=== PATIENT | male | born 1985 | race Caucasian/White ===

== ENCOUNTER 2018-09-03 00:53 | Emergency (ER) | payer MEDICAID, SELFPAY ==
[2018-09-03] VITALS (11 sets, daily range): BP systolic 140–168; BP diastolic 87–121; PULSE 82–102; RESP 14–24; O2SAT 95–100
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
[2018-09-03] MEDS: fentaNYL 100 MCG/2 ML VIAL ×5 (01:07→02:00)
[2018-09-03] MEDS: Lidocaine 1% Multi-Dose 50 ML VIAL (01:15)
[2018-09-03] MEDS: Lactated Ringers 1,000 ML 125 ML IV ×2 (01:15→01:25)
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
[2018-09-03 02:15] LABS: ALT 192 U/L (12-78); AST 193 U/L (15-37); Abs Immature Grans 0.05 k/cumm (0.0-0.09); Absolute Basophil Count 0.03 k/cumm (0.0-0.2); Absolute Eosinophil Count 0.16 k/cumm (0.0-0.7); Absolute Lymphocyte Count 6.02 k/cumm (1.2-3.4); Absolute Neutrophil Count 6.26 k/cumm (1.2-6.7); Albumin 3.6 g/dL (3.4-5.0); Alkaline Phosphatase 102 U/L (46-116); Anion Gap 10.3 mmol/L (3-11); BUN 24 mg/dL (7-18); Basophils % 0.2; Bilirubin, Total 0.5 mg/dL (0.2-1.0); CO2 29.7 mmol/L (21.0-32.0); Chloride 95 mmol/L (98-107); Eosinophils % 1.2; Glucose 272 mg/dL (70-100); HCT 38.9 % (40.0-50.0); Immature Grans % 0.4; Mean Corpuscular Hemoglobin 30.5 pg (27.0-33.0); Mean Corpuscular Volume 84.7 fL (80-95); Mean Platelet Volume 8.9 fL (8.0-11.0); Monocytes % 8.5; Neutrophils % 45.7; Platelet Count 329 x1000/uL (130-400); RBC 4.59 m/cumm (4.50-6.00); RBC Distribution Width 12.5 % (11.8-14.1); Sodium 135 mmol/L (136-145); Total Protein 7.7 g/dL (6.4-8.2); White Blood Cell Count 13.69 k/cumm (4.4-10.8)
[2018-09-03 02:16] LABS: Absolute Monocyte Count 1.16 k/cumm (0.11-0.7); Prothrombin Time 9.9 sec (9.3-11.0)
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
== END 2018-09-03 02:14 | disposition short-term general hospital (02) ==
PROVIDERS: Emergency Provider Emergency Medicine; PCP Family Medicine
DX: S21.301A Unspecified open wound of right front wall of thorax with penetration into thoracic cavity, initial encounter (principal); X95.9XXA Assault by unspecified firearm discharge, initial encounter; R06.82 Tachypnea, not elsewhere classified; F11.90 Opioid use, unspecified, uncomplicated
CPT/HCPCS: 32551; 36415; 36556; 51702; 80053; 86850; 86900; 86901; 86920; 96361; 96374; 96375; 99253; 99291; 71045; 74018; 85025; 85610; 85730; J3010

== ENCOUNTER 2018-09-14 10:26 | Outpatient (CLI) | payer MEDICAID, SELFPAY ==
--- NOTE | 2018-09-14 11:17 | DI.RAD_ITS ---
SYMPTOM/DIAGNOSIS: HEMOPNEUMOTHORAX J94.2 PA AND LATERAL CHEST: Comparison is made with 03 September 2018. The chest tube has been removed. There is no evidence of pneumothorax. The lungs are suboptimally inflated. There are increased densities at the right lung base. The findings could represent atelectasis. A pneumonia cannot be entirely excluded. Left lung appears clear. The heart size is normal. No effusions are seen. Skin deb are seen laterally in the right lower chest. There is no abnormal gas collection in the subcutaneous tissues. IMPRESSION: Right middle and lower lobe atelectasis vs infiltrate. No evidence of pneumothorax or pleural effusion.
[2018-09-14 11:21] LABS: Absolute Basophil Count 0.05 k/cumm (0.0-0.2); Absolute Lymphocyte Count 2.18 k/cumm (1.2-3.4); Absolute Monocyte Count 1.21 k/cumm (0.11-0.7); Absolute Neutrophil Count 7.95 k/cumm (1.2-6.7); Basophils % 0.4; Eosinophils % 1.7; HCT 37.2 % (40.0-50.0); HGB 12.3 g/dL (13.5-17.5); Immature Grans % 1.7; Lymphocytes % 18.5; Mean Corp. HGB Concentration 33.1 g/dL (32.0-36.0); Mean Corpuscular Hemoglobin 29.1 pg (27.0-33.0); Mean Corpuscular Volume 87.9 fL (80-95); Mean Platelet Volume 8.3 fL (8.0-11.0); Monocytes % 10.3; Neutrophils % 67.4; Platelet Count 541 x1000/uL (130-400); RBC 4.23 m/cumm (4.50-6.00); RBC Distribution Width 12.8 % (11.8-14.1); White Blood Cell Count 11.79 k/cumm (4.4-10.8)
[2018-09-14 12:16] LABS: ALT 43 U/L (12-78); AST 26 U/L (15-37); Albumin 3.1 g/dL (3.4-5.0); Alkaline Phosphatase 153 U/L (46-116); Anion Gap 11.9 mmol/L (3-11); BUN 6 mg/dL (7-18); Bilirubin, Total 0.2 mg/dL (0.2-1.0); CO2 26.1 mmol/L (21.0-32.0); CREATININE 0.98 mg/dL (0.70-1.30); Calcium 9.2 mg/dL (8.5-10.1); Chloride 101 mmol/L (98-107); Glucose 122 mg/dL (70-100); Potassium 3.9 mmol/L (3.5-5.1); Sodium 139 mmol/L (136-145); Total Protein 7.6 g/dL (6.4-8.2)
== END 2018-09-14 10:46 ==
PROVIDERS: PCP Family Medicine; Visit Provider Nurse Practitioner Family
DX: J94.2 Hemothorax (principal); R91.8 Other nonspecific abnormal finding of lung field
CPT/HCPCS: 36415; 80053; 71046; 85025

== ENCOUNTER 2019-04-27 10:33 | Emergency (ER) | payer MEDICAID, SELFPAY ==
[2019-04-27 10:39] VITALS: BP 128/75; PULSE 100; RESP 18; TEMP 37.1; O2SAT 94
--- NOTE | 2019-04-27 10:51 | ED.GENADUL_ITS ---
Discharge Plan Disposition Patient Disposition: HOME Condition: Stable Discharge Details Chief Complaint: Orthopedic Clinical Impression: Contusion of hand, right Primary Care Provider: Cindy Jansen ED Provider: Reginaldo Mcbride Home Meds and New Rx's Prescriptions: New amoxicillin-pot clavulanate [Augmentin] 875-125 mg tablet 1 tab PO Q12H Qty: 14 RF: 0 Discharge Instructions Instructions: Contusion in Adults (ED) Additional Instructions: if not better in a week see your primary care provider if you feel more ill, have redness spreading up the arm or severe worsening pain return to the emergency department Discharge Data Discharge Date/Time-TO BE ENTERED AT DEPARTURE: 04/27/19 11:58 Medical Decision Making 33 yo male who states he uses IV heroin daily comes in with right hand pain for 4 days after punching a wall several times. Denies other falls or injuries and denies injecting into his right hand. He has pain over mid 4th and 5th metacarpal, no pain in wrist with full rom and has intact sensation. Will xray to eval for fx. Has no crepitus to suggest nec fasc, has a small area of redness on posterior mid hand that is 2x2cm without breaks in the skin. Could be from the trauma vs cellulitis, no fluctuance to suggest abscess xray negative on my read. Will d/c on abx for possible cellulitis and advised f/u with pcp in a week if not better and return precautions given Differential Diagnosis fracture, cellulitis Imaging Data Radiologic Study: Attestation: I personally reviewed and interpreted this imaging study as follows: Imaging: X-Ray My impression: no acute findings HPI General Mode of arrival: ambulatory . Date/Time Provider Initiated Documentation: 04/27/19 10:48 . Limitations to Documentation: no limitations . Information obtained by: patient . History of Present Illness 33 year old M presents to the emergency department with the chief complaint of right hand pa in, described as moderate, Quality is described as aching, and is localized to the right and upper extremity. Patient reports no radiation. Patient started experiencing this day(s) (4) and it has been constant. No relieving factors improve symptom(s), No exacerbating factors reported . Patient notes no other symptoms.. Related Data Home Medications Medication Instructions Recorded Confirmed amoxicillin-pot clavulanate 1 tab PO Q12H #14 tab 04/27/19 [Augmentin] Previous Rx's Medication Instructions Recorded amoxicillin-pot clavulanate 1 tab PO Q12H #14 tab 04/27/19 [Augmentin] Allergies Allergy/AdvReac Type Severity Reaction Status Date / Time No Known Allergies Allergy Unverified 04/27/19 10:44 General Stated Complaint: Orthopedic OSBALDO: 4 Review of Systems Review of Systems All systems reviewed & are unremarkable except as noted in HPI and below Constitutional Denies chills, Denies fever(s) and Denies weakness Cardiovascular Denies chest pain and Denies dyspnea Respiratory Denies cough and Denies dyspnea Gastrointestinal Denies abdominal pain, Denies nausea and Denies vomiting Musculoskeletal Denies joint swelling Neurologic Denies weakness Psychiatric Denies depression [facility] Social History (Updated 09/03/18 @ 02:34 by Salvador Crespo MD) Smoking/Tobacco Use Status: Current every day Drug use: Daily Substance use type: heroin and IV drugs Do you feel safe at home: Yes Do you feel safe in your relationship?: Yes Exam Const General: no acute distress Orientation: alert HENMT Head: normal to inspection Ears: external ears normal General nose exam: external nose normal Mouth: moist mucous membranes Eyes General: appearance normal, both eyes and all related structures Neck Neck: normal visual inspection Resp Effort & Inspection: normal respiratory effort and able to speak in complete sentences Cardio Rate: regular rate Skin General skin exam: no rashes or lesions noted Neuro General: alert and oriented x3 Extrem General: full ROM and normal capillary refill Psych Mental Status: mental status grossly normal Course Vital Signs Temperature 37.1 C 04/27/19 10:39 Pulse 100 H 04/27/19 10:39 Respiratory Rate 18 04/27/19 10:39 Blood Pressure 128/75 04/27/19 10:39 Pulse Oximetry 94 L 04/27/19 10:39 Temperature 37.1 C 04/27/19 10:39 Temperature Source Skin 04/27/19 10:39 Pulse 100 H 04/27/19 10:39 Respiratory Rate 18 04/27/19 10:39 Respiratory Effort Non-Labored 04/27/19 10:47 Blood Pressure 128/75 04/27/19 10:39 Blood Pressure Position Sitting 04/27/19 10:39 Pulse Oximetry 94 L 04/27/19 10:39 Oxygen Delivery Method Room Air 04/27/19 10:39 Oxygen Flow Rate 0 04/27/19 10:39 Pain Level 5 04/27/19 10:47
--- NOTE | 2019-04-27 10:51 | DI.RAD_ITS ---
SYMPTOM/DIAGNOSIS: PAIN, PUNCHED WALL RIGHT HAND: There is posterior soft tissue swelling over the metacarpal region. No fracture or radiopaque foreign body is seen.
[2019-04-27] MEDS: Acetaminophen 500 MG TAB 1000 MG PO (10:53)
[2019-04-27 11:56] VITALS: BP 128/75; PULSE 100; RESP 18; TEMP 37.1; O2SAT 94
== END 2019-04-27 11:58 | disposition home or self-care (01) ==
PROVIDERS: Emergency Provider Emergency Medicine; PCP Nurse Practitioner Family
DX: S60.221A Contusion of right hand, initial encounter (principal); W22.01XA Walked into wall, initial encounter; F11.20 Opioid dependence, uncomplicated; Z59.0 Homelessness
CPT/HCPCS: 99283; 73130